=== PATIENT | female | born 1960 | race Caucasian/White ===

== ENCOUNTER → 2017-09-28 | Outpatient (CLI) | payer OTHER ==
[~2017-09-28] MED LIST: ASPI-1471 PO; ASPI81TA94 PO; ATOR20TA65 PO; BACDS PO; BUPR-129 PO; DICL100T54 PO; DIPH0.5D12 IM; HYDR-385 PO; ISOM60 PO; ISOS30TA51 PO; ISOS30TA54 PO; LEVO-315 PO; LEVO100T95 PO; LIS10 PO; LISI20TA29 PO; METO-231 PO; METO100T20 PO; PRED-314 PO; TRAM-420 PO; [UNRECOGNIZED DRUG - CODE] PO; [UNRECOGNIZED DRUG - CODE] PO
[2017-09-28 10:54] LABS: LDL CHOLESTEROL 68 mg/dl
== END ==
LOC: LAB 10:17
PROVIDERS: ATTEND Nurse Practitioner Primary Care
DX: E78.00 Pure hypercholesterolemia, unspecified (principal); I10 Essential (primary) hypertension
CPT/HCPCS: 36415; 82040; 82247; 82310; 82374; 82435; 82465; 82565; 82947; 83718; 84075; 84132; 84155; 84295; 84450; 84460; 84478; 84520

== ENCOUNTER → 2017-10-19 | Outpatient (CLI) | payer OTHER ==
--- NOTE | 2017-10-22 09:09 | RADIOLOGY IMAGING REPORT ---
FACILITY: [facility] PATIENT NAME: YAZMIN REINA : [id number] MR: [id number] V: [id number] EXAM DATE: [id number] ORDERING PHYSICIAN: PURVI NIELSEN TECHNOLOGIST: Bernarda Bonner PROCEDURE:US LEFT BREAST COMPARISON:None. INDICATIONS:LT BREAST PAIN 6 O'CLOCK PERIAREOLAR REGION. FINDINGS: The Left breast was imaged in the 3-9 o'clock inferior Left breast revealing no sonographic abnormality therefore clinical follow-up recommended for patient's Left breast pain. DIAGNOSTIC CATEGORY 2--BENIGN FINDING. RECOMMENDATIONS: ROUTINE MAMMOGRAM AND CLINICAL EVALUATION. IMPRESSION: BIRADS 2: Benign finding No abnormality identified in the Left breast therefore clinical follow-up recommended for patient's Left breast pain. Dictated by: Janelle Núñez M.D. on 10/19/2017 at 15:50 Transcribed by: GABRIELA on 10/19/2017 at 16:26 Approved by: Janelle Núñez M.D. on 10/22/2017 at 9:09 [facility]
--- NOTE | 2017-10-22 09:09 | RADIOLOGY IMAGING REPORT ---
FACILITY: [facility] [place] PATIENT NAME: YAZMIN REINA : [id number] MR: [id number] V: [id number] EXAM DATE: [id number] ORDERING PHYSICIAN: PURVI NIELSEN TECHNOLOGIST: Lizzy Davis PROCEDURE:BILATERAL DIAGNOSTIC DIGITAL MAMMOGRAM WITH CAD ASSISTED INTERPRETATION & 3D TOMOSYNTHESIS COMPARISON:Prior mammograms 09/09/10. INDICATIONS:Left breast pain, approximate 6 o'clock periareolar Left breast FINDINGS: Small amount of fibroglandular tissue is seen throughout the breasts. The parenchymal pattern has remained stable allowing for difference in mammographic technique & patient positioning. There is no evidence of malignant appearing mass, malignant appearing calcifications or other secondary sign of malignancy in either breast. Today's targeted Left breast Ultrasound likewise revealed no abnormality. DIAGNOSTIC CATEGORY 2--BENIGN FINDING. RECOMMENDATIONS: ROUTINE MAMMOGRAM AND CLINICAL EVALUATION. IMPRESSION: BIRADS 2: Benign finding No significant abnormality identified therefore clinical follow-up recommended for patient's Left breast pain. Dictated by: Janelle Núñez M.D. on 10/19/2017 at 15:49 Transcribed by: GABRIELA on 10/19/2017 at 16:19 Approved by: Janelle Núñez M.D. on 10/22/2017 at 9:08 [facility]
== END ==
LOC: MAMO 04:26
PROVIDERS: ATTEND Nurse Practitioner Primary Care
DX: N64.4 Mastodynia (principal)
CPT/HCPCS: 77062; 77066

== ENCOUNTER → 2018-11-14 | Outpatient (CLI) | payer OTHER ==
[~2018-11-14] MED LIST changes: -DIPH0.5D12 IM; +DIPH0.5S2 IM; +[UNRECOGNIZED DRUG - CODE] PO; -[UNRECOGNIZED DRUG - CODE] PO
[2018-11-14 09:43] LABS: PLATELET COUNT, AUTOMATED 291 K/uL (150-450)
[2018-11-14 10:41] LABS: LDL CHOLESTEROL 83 mg/dl
== END ==
LOC: LAB 09:15
PROVIDERS: ATTEND Nurse Practitioner Primary Care
DX: E78.2 Mixed hyperlipidemia (principal); I10 Essential (primary) hypertension; E03.9 Hypothyroidism, unspecified
CPT/HCPCS: 36415; 82040; 82247; 82310; 82374; 82435; 82465; 82565; 82947; 83718; 84075; 84132; 84155; 84295; 84443; 84450; 84460; 84478; 84520; 85025

== ENCOUNTER 2018-12-24 06:34 | Emergency (ER) | payer OTHER ==
--- NOTE | 2018-12-24 07:23 | ER Report ---
History and Physical Time Seen By MD: 07:23 Hx. of Stated Complaint: LEFT KNEE PAIN FOR A MONTH. HAS BEEN WRAPPING IT IN AN MATT WRAP, TAKING MOTRIN, USING ICE. NOTHING HELPS WITH THE PAIN HPI/ROS Pain in anterior left khan and now back of left knee worsening for one month. 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 No trauma. No chest pain or SOB. No recent travel. No fever/chills. Knee is not warm/red/swollen. Pain came gradually over the month. Remainder of the 14 system rev: Yes Allergies: Coded Allergies: clindamycin HCl (Verified Allergy, Severe, angioedema, difficulty breathing, 12/24/18) Home Meds Active Scripts Atorvastatin Calcium (ATORVASTATIN CALCIUM) 20 Mg Tablet, 1 TAB PO QDAY, #90 TAB 3 Refills Prov:[facility]EN D[facility], [facility] 11/20/18 Metoprolol Succinate (METOPROLOL SUCCINATE) 100 Mg Tab.er.24h, 1 TAB PO QDAY, #90 TAB 3 Refills Prov:PURVI NIELSEN DNP, FNP-BC 11/20/18 Lisinopril (LISINOPRIL) 20 Mg Tablet, 1 TAB PO QDAY, #90 TAB 3 Refills Prov:PURVI NIELSEN DNP, FNP-BC 11/20/18 Levothyroxine Sodium (LEVOXYL) 100 Mcg Tablet, 1 TAB PO QDAY, #90 TAB 3 Refills Prov:PURVI NIELSEN DNP, FNP- 11/20/18 Isosorbide Mononitrate (ISOSORBIDE MONONITRATE ER) 30 Mg Tab.er.24h, 0.5 TAB PO DAILY, #45 TAB 3 Refills Prov:PURVI NIELSEN DNP, FNP- 11/20/18 Reported Medications Aspirin (ASPIRIN) 81 Mg Tab.chew, 1 TAB PO QDAY, TAB.CHEW TAKE 1 TABLET BY MOUTH EVERY DAY 12/31/14 Reviewed Nurses Notes: Yes Old Medical Records Reviewed: Yes Hx Smoking: Yes Smoking Status: Current: Every Day Smoker Exposure to Second Hand Smoke?: No Hx Substance Use Disorder: No Hx Alcohol Use: Yes Constitutional Vital Sign - Last 24 Hours 12/24/18 12/24/18 12/24/18 12/24/18 06:34 06:39 06:43 06:49 Temp 98.1 Pulse ??? 75 84 Resp 12 B/P (MAP) 128/92 128/92 (104) Pulse Ox 94 93 O2 Delivery Room Air 12/24/18 12/24/18 12/24/18 12/24/18 07:00 07:04 07:19 07:30 Pulse 76 77 B/P (MAP) 116/84 (95) 105/77 (86) Pulse Ox 92 91 12/24/18 12/24/18 12/24/18 12/24/18 07:34 07:49 08:00 08:04 Pulse 71 71 64 B/P (MAP) 113/87 (96) Pulse Ox 90 92 91 12/24/18 08:19 Pulse 64 Pulse Ox 93 Physical Exam General appearance: Alert no distress. left knee: There is no significant swelling. There is no effusion. There is no obvious deformity of the knee. There is no tenderness to the patella. The joint is stable with no comparable ligamentous laxity to the knee. There is TTP of the posterior fossa. No fluctuance. Symmetric to right knee. There is mild TTP of the tib/fib Neurologic exam: The patient has normal sensation distal to the injury. Vascular exam: Normal pulses and capillary refill in the foot DIFFERENTIAL DIAGNOSIS: After history and physical exam differential diagnosis was considered for knee injury including sprain, fracture, meniscus injury, DVT, infection, and soft tissue injury. Medical Decision Making ED Course/Re-evaluation ED Course No DVT, infection, fracture, cyst, or other acute findings of the knee/khan. Could have khan splints due to walking on concrete. Will follow up with PCM for possible PT and bone scan. Decision to Disposition Date: Dec 24, 2018 Decision to Disposition Time: 09:45 Depart Departure Latest Vital Signs Vital Signs Date Time Temp Pulse Resp B/P (MAP) Pulse Ox O2 Delivery O2 Flow Rate FiO2 12/24/18 08:19 64 93 12/24/18 08:00 113/87 (96) 12/24/18 06:39 98.1 12 Room Air Impression: Primary Impression: Knee pain, left Condition: Improved Disposition: HOME OR SELF-CARE Referrals: PURVI NIELSEN DNP, [employer] [facility] (PCP) Patient Instructions: Knee Dislocation (GEN) Additional Instructions: PLEASE FOLLOW UP THIS WEEK WITH YOUR PCM TO DISCUSS POSSIBLE IMAGING OR PHYSICAL THERAPY FOR POSSIBLE KHAN SPLINTS Problem Qualifiers Primary Impression: Knee pain, left Chronicity: acute Qualified Codes: M25.562 - Pain in left knee PARIS MACKEY MD Dec 24, 2018 07:23
[2018-12-24] MEDS ORDERED: traMADol 50 MG TAB PO ONE (07:25)
--- NOTE | 2018-12-24 08:00 | RADIOLOGY IMAGING REPORT ---
FACILITY: [facility] PATIENT NAME: Kalyani Dong : 1960 MR: [id number] V: [id number] EXAM DATE: ORDERING PHYSICIAN: PARIS MACKEY TECHNOLOGIST: Location: [facility] [place] Patient: Kalyani Dong : 1960 Visit/Account:[id number] Date of Sevice: 12/24/2018 LEFT KNEE: Indication: Chronic pain. Technique: 3 views of the knee were obtained. Comparison: 12/24/2012 Findings: There is no evidence of fracture, dislocation, or other acute deformity. There is no eviden ce of joint space narrowing. There is mild spur formation on the superior margin of the patella, unch anged from the prior study. There is normal mineralization of the skeletal structures. The periarticu lar soft tissues appear unremarkable. IMPRESSION: No acute deformity or significant change.. Report Dictated By: Erich Beard MD at 12/24/2018 7:54 AM Report E-Signed By: Erich Beard MD at 12/24/2018 7:56 AM WSN:[id number]
--- NOTE | 2018-12-24 08:01 | RADIOLOGY IMAGING REPORT ---
FACILITY: [facility] PATIENT NAME: Kalyani Dong : 1960 MR: [id number] V: [id number] EXAM DATE: ORDERING PHYSICIAN: PARIS MACKEY TECHNOLOGIST: Location: [facility] Patient: Kalynai Dong : 1960 Visit/Account:[id number] Date of Sevice: 12/24/2018 Left tibia/fibular, 2 views. HISTORY: Left lower leg pain. COMPARISON: None. The bones, joints, and soft tissues are unremarkable. No fractures are identified. IMPRESSION: Negative tibia and fibula. Report Dictated By: Ricki Gomez MD at 12/24/2018 7:55 AM Report E-Signed By: Ricki Gomez MD at 12/24/2018 7:56 AM WSN:[id number]
--- NOTE | 2018-12-24 08:24 | RADIOLOGY IMAGING REPORT ---
FACILITY: [facility] PATIENT NAME: Kalyani Dong : 1960 MR: [id number] V: [id number] EXAM DATE: ORDERING PHYSICIAN: PARIS MACKEY TECHNOLOGIST: Location: [facility] Patient: Kalyani Dong : 1960 Visit/Account:[id number] Date of Sevice: 12/24/2018 US VENOUS LOWER EXT LT HISTORY: pain behind knee, worse for a month ADDITIONAL HISTORY: None. COMPARISON: None. FINDINGS: The left common femoral, femoral, and popliteal veins are fully compressible and patent. The paired veins of the calf are normal. IMPRESSION: Normal left lower extremity Doppler exam. No evidence of DVT. Report Dictated By: Henry Bills at 12/24/2018 8:17 AM Report E-Signed By: Henry Bills at 12/24/2018 8:20 AM WSN:[id number]
[2018-12-24 09:30] VITALS: BP 105/71
[2018-12-24] MEDS ORDERED: TRAM-420 PO (11:56)
== END 2018-12-24 09:52 | disposition home or self-care (01) ==
LOC: ER 07:25
DX: M25.562 Pain in left knee (principal)
CPT/HCPCS: 99284